=== PATIENT | female | born 1995 | race Caucasian/White ===

== ENCOUNTER 2024-03-30 20:44 | Emergency (ER) | payer SELFPAY ==
[~2024-03-30] VITALS: Ht 147.3 cm; Wt 69.0 kg
[2024-03-30 21:04] VITALS: BP 121/68; PULSE 108; RESP 18; TEMP 98; O2SAT 98
[2024-03-30] MEDS ORDERED: ACETAMINOPHEN 325MG TABLET PO ONE (21:15)
== END 2024-03-31 02:00 | disposition home or self-care (01) ==
LOC: ER 20:44
DX: S06.0X0A Concussion without loss of consciousness, initial encounter (principal); S40.812A Abrasion of left upper arm, initial encounter; S40.811A Abrasion of right upper arm, initial encounter; M25.571 Pain in right ankle and joints of right foot; Z98.890 Other specified postprocedural states; W31.89XA Contact with other specified machinery, initial encounter; Y93.89 Activity, other specified; Y92.89 Other specified places as the place of occurrence of the external cause; Y99.8 Other external cause status
CPT/HCPCS: 73610; 99283

== ENCOUNTER 2024-10-31 22:19 | Emergency (ER) | payer SELFPAY ==
[~2024-10-31] VITALS: Ht 147.3 cm; Wt 66.0 kg
[2024-10-31 22:23] VITALS: O2SAT 100
[2024-10-31] MEDS ORDERED: ACETAMINOPHEN 325MG TABLET PO ONE (22:45)
[2024-10-31 23:00] LABS: BASOPHILS % 0.6 % (0.0-2.0); EOSINOPHILS % 0.3 % (0.0-5.0); HEMOGLOBIN. 11.5 g/dL (12.0-16.0); LYMPHOCYTES % 17.8 % (20.0-50.0); MEAN CORPUSCULAR HEMOGLOBIN 26.2 pg (28.0-32.0); MEAN CORPUSCULAR HGB CONC 31.9 g/dL (31.0-37.0); MEAN CORPUSCULAR VOLUME 82.1 fL (81.0-99.0); MEAN PLATELET VOLUME 7.5 fl (7.4-10.4); MONOCYTES % 9.5 % (2.0-8.0); NEUTROPHILS % 71.8 % (40.0-76.0); PLATELET 358 x1000/uL (130-400); RED BLOOD CELL COUNT 4.39 mill/uL (4.2-5.4); RED CELL DISTRIBUTION WIDTH 15.4 % (11.6-14.6); WHITE BLOOD COUNT 9.8 x1000/uL (4.5-11.0)
[2024-10-31 23:20] LABS: CHLORIDE 105 mEq/L (98-107); POTASSIUM 3.9 mEq/L (3.5-5.1); SODIUM 139 mEq/L (136-145)
[2024-10-31 23:21] LABS: CARBON DIOXIDE 25 mEq/L (21-32)
[2024-10-31 23:26] LABS: CREATININE 0.7 mg/dL (0.6-1.0); GLUCOSE 98 mg/dL (70-105); UREA NITROGEN BLOOD 9 mg/dL (9-23)
[2024-10-31 23:50] LABS: TROPONIN I HIGH SENSITIVITY < 4 ng/L (3.0-34)
[2024-10-31 23:51] LABS: HCG SCREEN NEGATIVE
[2024-10-31] MEDS ORDERED: IBUP-2028 MT (23:59)
[2024-11-01 00:13] VITALS: BP 129/84; PULSE 104; RESP 16; TEMP 36.78072; O2SAT 100
== END 2024-11-01 00:13 | disposition home or self-care (01) ==
LOC: ER 22:19
DX: R00.2 Palpitations (principal); R07.9 Chest pain, unspecified; F14.90 Cocaine use, unspecified, uncomplicated; Z98.890 Other specified postprocedural states
CPT/HCPCS: 36415; 71045; 80048; 84484; 84703; 85025; 93005; 99285